=== PATIENT | male | born 2000 | race Caucasian/White ===

== ENCOUNTER 2021-07-31 06:12 | Emergency (ER) | payer OTHER ==
[~2021-07-31] VITALS: Ht 195.6 cm; Wt 100.0 kg
[2021-07-31 07:34] LABS: CHLORIDE 105 mEq/L (98-107)
[2021-07-31 07:43] LABS: BASOPHILS % 0.9 % (0.0-2.0); EOSINOPHILS % 6.4 % (0.0-5.0); HEMATOCRIT. 45.1 % (42.0-52.0); LYMPHOCYTES % 42.2 % (20.0-50.0); MEAN CORPUSCULAR HEMOGLOBIN 32.6 pg (28.0-32.0); MEAN CORPUSCULAR VOLUME 91.6 fL (80.0-94.0); MONOCYTES % 7.6 % (2.0-8.0); NEUTROPHILS % 42.9 % (40.0-76.0); RED BLOOD CELL COUNT 4.92 mill/uL (4.7-6.1); RED CELL DISTRIBUTION WIDTH 12.3 % (11.6-14.6)
[2021-07-31 09:12] LABS: PLATELET 205 x1000/uL (130-400)
[2021-07-31 10:05] VITALS: BP 122/68
== END 2021-07-31 10:21 | disposition home or self-care (01) ==
LOC: ER 06:12
DX: R07.9 Chest pain, unspecified (principal); R00.2 Palpitations; R06.02 Shortness of breath; R42 Dizziness and giddiness; F17.200 Nicotine dependence, unspecified, uncomplicated; I48.91 Unspecified atrial fibrillation
CPT/HCPCS: 36415; 71045; 80053; 83880; 84484; 85025; 93005; 99285